=== PATIENT | female | born 1980 | race Caucasian/White ===

== ENCOUNTER 2018-05-13 18:05 | Emergency (ER) | payer SELFPAY ==
[~2018-05-13] VITALS: Ht 170.2 cm; Wt 113.4 kg
--- NOTE | 2018-05-13 18:56 | NUR ---
REPORT GIVEN TO CHUCKIE RADFORD
[2018-05-13] MEDS ORDERED: HYDROCODONE/APAP 10MG-325MG TAB PO ONE (19:00)
--- NOTE | 2018-05-13 19:38 | Diagnostic Imaging Report ---
FOOT RIGHT COMPLETE Comparison: None Clinical history: Fracture Findings: Displaced oblique fracture of the fourth distal metatarsal/neck and slightly displaced fracture of the third metatarsal neck. Overlying soft tissue swelling. Impression: Fractures of the third and fourth metatarsals, as above. Signed by: Dr Sallie Eckert MD on 05/13/2018 7:35 PM
[2018-05-13 19:59] VITALS: BP 156/88
== END 2018-05-13 20:03 | disposition home or self-care (01) ==
LOC: ER 18:05
DX: S92.331A Displaced fracture of third metatarsal bone, right foot, initial encounter for closed fracture (principal); S92.341A Displaced fracture of fourth metatarsal bone, right foot, initial encounter for closed fracture; W17.89XA Other fall from one level to another, initial encounter; Y92.830 Public park as the place of occurrence of the external cause
CPT/HCPCS: 99283